=== PATIENT | female | born 2000 | race Two or more races ===

== ENCOUNTER 2025-03-14 07:59 | Outpatient (RCR) | payer MEDICAID, SELFPAY | END 2025-03-31 23:59 | disposition home or self-care (01) | LOC: SCTC 07:59 | PROVIDERS: PCP Nurse Practitioner; Referring Provider Nurse Practitioner; Visit Provider Nurse Practitioner Family | DX: D50.9 Iron deficiency anemia, unspecified (principal); N92.0 Excessive and frequent menstruation with regular cycle; R11.0 Nausea | CPT/HCPCS: 99213; G0463 ==

== ENCOUNTER 2025-04-18 15:09 | Outpatient (RCR) | payer MEDICAID, SELFPAY | END 2025-05-01 23:59 | disposition home or self-care (01) | LOC: SCTC 15:09 | PROVIDERS: PCP Physician Assistant; Referring Provider Physician Assistant; Visit Provider Nurse Practitioner Family | DX: D50.9 Iron deficiency anemia, unspecified (principal); N92.0 Excessive and frequent menstruation with regular cycle; R11.0 Nausea | CPT/HCPCS: 99212; G0463 ==